=== PATIENT | male | born 1965 | race Caucasian/White ===

== ENCOUNTER 2023-09-18 03:42 | Emergency (ER) | payer MEDICARE, OTHER, SELFPAY ==
--- NOTE | ~2023-09-18 | CT_ITS ---
Clinical Indication: Chest pain, aneurysm CT Scan of the Chest, Abdomen, and Pelvis with Contrast: Technique: Contiguous sections were acquired throughout the chest, abdomen, and pelvis after intraven ous administration of 100 cc of Omnipaque 350. Dose reduction technique was used on this scan by uti lizing automated exposure control and iterative reconstruction technique. The dose-length product (DL P) was 671.39 mGy-cm. Findings: There is no evidence of any significant mediastinal, hilar or axillary lymphadenopathy. The mediastin al soft tissues appear normal. Ascending aorta is mildly dilated 4.4 cm. No thoracic aortic dissectio n. There is no evidence of pleural or pericardial effusion. The lungs are clear. No pulmonary nodules or infiltrates are noted. The liver, spleen, pancreas, gallbladder, and adrenal glands are within normal limits. There are smal l bilateral nonobstructing renal stones. There are areas of cortical scarring bilaterally, left kidne y worse than right. Probable bilateral renal cysts, including with mildly hyperdense left renal cyst, solid mass is completely excluded (axial image 141). Infrarenal abdominal aortic aneurysm measures u p to 4.7 cm in diameter, with mural thrombus present. No lymphadenopathy. No bowel obstruction or bowel wall thickening. There is no evidence to suggest acute appendicitis. Urinary bladder is unremarkable. No pelvic mass evident. No ascites. Mild chronic appearing compressi on deformity of L1 present. Impression: 4.4 cm ascending aortic aneurysm. 4.7 cm infrarenal abdominal aortic aneurysm. Small bilateral nonobstructing renal stones. Suspected mildly hyperdense left renal cyst versus possi rogerio solid mass. Pre and postcontrast MR recommended to confirm or exclude solid left renal lesion. Reviewed, dictated and finalized at [facility]. Impression: 4.4 cm ascending aortic aneurysm. 4.7 cm infrarenal abdominal aortic aneurysm. Small bilateral nonobstructing renal stones. Suspected mildly hyperdense left r enal cyst versus possibly solid mass. Pre and postcontrast MR recommended to co nfirm or exclude solid left renal lesion.
[2023-09-18 03:43] VITALS: BP 164/104; PULSE 88; RESP 15; O2SAT 98
--- NOTE | 2023-09-18 03:51 | ECG_ITS ---
Measurements Intervals Harvey Rate: 86 P: 31 SC: 158 QRS: -15 QRSD: 101 T: 51 QT: 359 QTc: 430 Interpretive Statements SINUS RHYTHM POSSIBLE LEFT ATRIAL ENLARGEMENT [-0.1mV P WAVE IN V1/V2] INCOMPLETE RIGHT BUNDLE BRANCH BLOCK [90+ ms QRS DURATION, TERMINAL R IN V1/V2, 40+ ms S IN I/aVL/V4/V5/V6] SEPTAL MYOCARDIAL INFARCTION , OF INDETERMINATE AGE [40+ ms Q WAVE IN V1/V2] NO PREVIOUS ECG AVAILABLE FOR COMPARISON Electronically Signed On 09-20-2023 13:17:34 CDT by Zahida Apodaca M.D.
[2023-09-18 03:57] VITALS: PULSE 77
[2023-09-18 03:57] LABS: Basophils Percent Auto 0.3 % (0.2-1.2); Eosinophils Absolute Auto 0.1 K/mm3 (0-0.3); Eosinophils Percent Auto 0.6 % (0-4.4); Hematocrit 52.4 % (42.0-52.0); Hemoglobin 17.7 g/dL (14.0-18.0); Immature Granulocyte Absolute 0.02 K/mm3 (0.00-0.031); Immature Granulocyte Percent A 0.2 % (0-0.5); Lymphocytes Absolute Auto 3.07 K/mm3 (0.9-3.2); Lymphocytes Percent Auto 29.6 % (18.3-44.2); Mean Corpuscular HGB Conc 33.8 g/dl (32-36); Mean Corpuscular Hemoglobin 31.9 pg (26-34); Mean Corpuscular Volume 94.4 fl (80-100); Monocytes Absolute Auto 0.5 K/mm3 (0.1-0.6); Neutrophils Absolute Auto 6.7 K/mm3 (1.3-6.7); Neutrophils Percent Auto 64.3 % (45.5-73.1); Platelet Count Result 295 k/mm3 (150-375); Red Blood Count 5.55 M/mm3 (4.6-6.20); Red Cell Distribution Width 12.2 % (11.5-14.5); White Blood Count 10.4 K/mm3 (4.5-10.0)
--- NOTE | 2023-09-18 04:13 | ED.CHESTPAIN ---
HPI - Chest Pain General Chief Complaint: Chest Pain Stated Complaint: chest pain Time Seen by Provider: 09/18/23 03:59 History of Present Illness HPI narrative: Patient is a 58-year-old male who presents the emergency department this morning, planing of chest pain, upper back pain, nausea and vomiting and feeling anxious. Pain started yesterday morning approximately 24 hours ago. Patient states that he does have a history of a known AAA and is unsure if his symptoms are due to his anxiety since he has not been taking his anxiety medications as he is waiting for his prescription to get refilled. Patient denies any fevers or chills, any urinary symptoms including dysuria hematuria, any constipation or diarrhea, denies any sharp abdominal pain and has no additional concerns at this time. Related Data Allergies Allergy/AdvReac Type Severity Reaction Status Date / Time No Known Allergies Allergy Verified 09/18/23 03:49 Review of Systems Review of Systems: All systems are reviewed and are negative unless stated otherwise in the HPI. Exam Narrative: General: Alert, awake, afebrile, anxious. HEENT: PERRL, no rhinorrhea, no post nasal drip, oropharynx clear. Neck: Trachea midline, no JVD, no lymphadenopathy. Cardiovascular: Regular rate and rhythm, no murmurs, rubs or gallops, no peripheral edema. Respiratory: Clear to auscultation bilaterally, no tachypnea, no wheezing, no rhonchi, no rubs, no respiratory distress. Abdomen: Soft, nontender, nondistended, no rebound, no guarding, no peritoneal signs. Musculoskeletal: No joint swelling or deformity, normal muscle tone. Skin: No rashes or petechia, no signs of infection. Psychiatric: Alert and oriented, normal behavior and judgment for situation. Neurological: Alert and oriented to person, place, and time. Follows all commands. No focal deficits, speech is clear and fluent. Course Vital Signs Vital signs: Vital Signs Pulse Rate 88 09/18/23 03:43 Respiratory Rate 15 09/18/23 03:43 Blood Pressure 164/104 H 09/18/23 03:43 Pulse Oximetry 98 09/18/23 03:43 Oxygen Delivery Room Air 09/18/23 03:43 Pulse Rate 86 09/18/23 07:03 Respiratory Rate 15 09/18/23 07:03 Blood Pressure 160/114 H 09/18/23 07:03 Pulse Oximetry 100 09/18/23 07:03 Oxygen Delivery Room Air 09/18/23 03:43 MDM - Chest Pain MDM Narrative Medical decision making narrative: The patient was evaluated by myself in the emergency department. History is obtained from patient who is an independent historian and physical exam was performed. External medical records were reviewed at this time. IV was established and pertinent tests were ordered. Patient's initial blood pressure was noted to be 164/104. Patient states that he used to have a history of high blood pressure both taking off of his lisinopril approximately 1 year ago as it was dropping his blood pressure significantly. Patient does have a blood pressure monitor at home and states that his blood pressure normally runs around 120-130 systolic. At this time, patient was administered 20 mg of IV labetalol with improvement of his systolic blood pressure to 138 mmHg. Patient was administered 4 mg of IV Zofran for nausea and vomiting. EKG was obtained and reviewed by me revealing sinus rhythm at a rate of 86 beats per minute with ST depressions noted in leads 2, 3, AVF, and V4 through V6, no ST elevation. EKG currently pending official cardiology read. No previous EKG was available for comparison. Patient was instructed that he will need to follow-up with cardiology for further workup and patient is agreeable. Laboratory results obtained revealing no acute process. Two sets of troponins were obtained and noted to be negative. Imaging studies obtained included CT angio chest/abdomen / pelvis with IV contrast which was independently interpreted by me revealing no acute process. Patient was informed regarding his ascending
[2023-09-18] MEDS: ONDANSETRON INJ 4 MG/2 ML VIAL IV PUSH (04:21)
[2023-09-18 04:33] LABS: INR 0.9
[2023-09-18 04:34] LABS: Partial Thromboplastin Time 32.1 Seconds (22.3-36.8)
[2023-09-18 04:40] LABS: Alanine Aminotransferase 15 U/L (6-50); Albumin Level 4.7 g/dL (3.5-5.1); Alkaline Phosphatase 185 U/L (38-126); Anion Gap 8 mmol/L (4-12); Aspartate Amino Transferase 17 U/L (17-59); Bilirubin,Total 1.2 mg/dL (0.2-1.3); Blood Urea Nitrogen 8 mg/dL (9-20); Calcium 10.3 mg/dL (8.4-10.2); Carbon Dioxide 24 mmol/L (22-30); Chloride 105 mmol/L (98-107); Estimated CRCL calculation 81 ml/min; Estimated Glomerular Filt Rate > 60; Glucose 145 mg/dL (65-110); Lipase 96 U/L (23-300); Potassium 4.2 mmol/L (3.4-5.0); Sodium 137 mmol/L (137-145)
[2023-09-18 04:52] LABS: Troponin I < 0.012 ng/mL (0.000-0.034)
[2023-09-18 04:54] LABS: Influenza A QL RT-PCR Negative (Negative); Influenza B QL RT-PCR Negative (Negative); RSV RNA, RT-PCR Negative (Negative); SARS-CoV-2 RNA PCR Negative (Negative)
[2023-09-18 05:11] VITALS: BP 136/104; PULSE 80; RESP 16; O2SAT 96
[2023-09-18 06:52] LABS: Troponin I < 0.012 ng/mL (0.000-0.034)
[2023-09-18 07:03] VITALS: BP 160/114; PULSE 86; RESP 15; O2SAT 100
[2023-09-18] MEDS: LABETALOL HCL INJ 100 MG/20 ML VIAL 20 MG IV PUSH (07:03)
[2023-09-18 07:45] VITALS: BP 150/109; PULSE 75; RESP 16; O2SAT 100
== END 2023-09-18 07:50 | disposition home or self-care (01) ==
PROVIDERS: Emergency Provider Emergency Medicine
DX: R07.9 Chest pain, unspecified (principal); I71.21 Aneurysm of the ascending aorta, without rupture; I71.43 Infrarenal abdominal aortic aneurysm, without rupture; F41.9 Anxiety disorder, unspecified; Z20.822 Contact with and (suspected) exposure to COVID-19; I45.10 Unspecified right bundle-branch block; R94.31 Abnormal electrocardiogram [ECG] [EKG]
CPT/HCPCS: 36415; 71275; 74174; 80053; 83690; 84484; 85025; 85610; 85730; 87637; 93005; 96374; 96375; 99284; J2405; Q9967